=== PATIENT | male | born 1950 ===

== ENCOUNTER 2023-02-05 14:45 | Outpatient (CLI) | payer MEDICARE, OTHER | END 2023-02-05 14:46 | disposition home or self-care (01) | LOC: CSHCT 14:45 | PROVIDERS: ATTEND Thoracic Surgery (Cardiothoracic Vascular Surgery) | DX: I70.202 Unspecified atherosclerosis of native arteries of extremities, left leg (principal); I77.1 Stricture of artery; I51.3 Intracardiac thrombosis, not elsewhere classified | CPT/HCPCS: 75635; 82565 ==